=== PATIENT | female | born 1995 | race Caucasian/White ===

== ENCOUNTER 2022-09-22 21:44 | Emergency (ER) | payer BC ==
[~2022-09-22] VITALS: Ht 160 cm; Wt 73.6 kg
[2022-09-22 22:44] VITALS: BP 123/67
[2022-09-23 00:43] LABS: BASOPHILS % 0.4 % (0.0-2.0); EOSINOPHILS % 0.5 % (0.0-5.0); HEMATOCRIT. 38.6 % (36.0-48.0); HEMOGLOBIN. 12.9 g/dL (12.0-16.0); LYMPHOCYTES % 14.8 % (20.0-50.0); MEAN PLATELET VOLUME 9.6 fl (7.4-10.4); MONOCYTES % 8.1 % (2.0-8.0); NEUTROPHILS % 76.2 % (40.0-76.0); PLATELET 208 x1000/uL (130-400); RED BLOOD CELL COUNT 4.44 mill/uL (4.2-5.4); RED CELL DISTRIBUTION WIDTH 12.9 % (11.6-14.6)
[2022-09-23 00:49] LABS: PROTHROMBIN TIME 10.9 sec (9.6-11.0)
[2022-09-23 01:17] LABS: CHLORIDE 106 mEq/L (98-107); ETHANOL BLOOD < 10 mg/dL
[2022-09-23 01:41] LABS: HCG SCREEN NEGATIVE
[2022-09-23] MEDS ORDERED: PANTOPRAZOLE 40MG DR TABLET PO ONE (02:45)
[2022-09-23] MEDS ORDERED: PROT20 MT (03:39)
[2022-09-23] MEDS ORDERED: AMOX1TAB16 MT (04:22)
== END 2022-09-23 04:25 | disposition left against medical advice (07) ==
LOC: ER 21:44
DX: R10.13 Epigastric pain (principal); M54.89 Other dorsalgia; R11.2 Nausea with vomiting, unspecified; R19.4 Change in bowel habit
CPT/HCPCS: 36415; 74176; 76830; 76856; 80053; 80320; 84703; 85025; 86850; 86900; 99285; G0480